=== PATIENT | male | born 1960 | race Caucasian/White ===

== ENCOUNTER 2018-08-14 14:35 | Emergency (ER) | payer OTHER ==
[~2018-08-14] VITALS: Ht 182.9 cm; Wt 81.6 kg
== END 2018-08-14 19:19 | disposition home or self-care (01) ==
LOC: ER 14:35
DX: M54.31 Sciatica, right side (principal)

== ENCOUNTER 2025-05-12 11:55 | Emergency (ER) | payer OTHER ==
[~2025-05-12] VITALS: Ht 182.9 cm; Wt 73.9 kg
[2025-05-12 12:32] VITALS: BP 160/80; O2SAT 100
[2025-05-12 16:17] LABS: BASO % 0.4 % (0.1-1.2); EOS # 0.10 (0.04-0.54); EOS % 1.0 % (0.7-7.0); LYMPH # 2.48 (1.18-3.74); LYMPH % 24.6 % (19.3-53.1); MEAN PLATELET VOLUME 9.10 fl (9.4-12.4); MONO # 0.85 (0.24-0.82); MONO % 8.4 % (4.7-12.5); NEUT # 6.61 (1.56-6.13); NEUT % 65.4 % (34.0-71.1); RED CELL DISTRIBUTION WIDTH 13.1 % (11.6-14.4)
[2025-05-12 16:26] LABS: URINE APPEARANCE Clear; URINE BILIRRUBIN Negative (NEGATIVE); URINE BLOOD Trace; URINE COLOR Yellow; URINE GLUCOSE Negative (NEGATIVE); URINE KETONE Trace (NEGATIVE); URINE LEUKOCYTE Negative; URINE NITRATE Negative; URINE PROTEIN 30 (NEGATIVE); URINE UROBILINOGEN 1.0 E.U./dl
[2025-05-12 16:30] LABS: URINE BACTERIA 73.1 uL (0.0-1933); URINE EPITHELIAL CELLS 7.5 uL (0.0-38.8); URINE RBC 21.4 uL (0.0-20.8); URINE WBC 5.3 uL (0.0-23.2)
[2025-05-12 16:31] LABS: URINE CAST 0.14 uL (0.0-1.40)
[2025-05-12 16:48] LABS: ALT/SGPT 20.0 U/L (12-78); AST/SGOT 20.0 U/L (15-37); BILIRUBIN TOTAL 0.5 mg/dL (0.3-1.2); BUN CREA RATIO 18.0 (7.0-25.0); CREATININE SERUM 1.19 mg/dL (0.70-1.30); GFR 61.35; GLOBULINA 3.7 G/DL (2.4-3.5); GLUCOSE FASTING 139.0 mg/dL (65-100); OSMOLALITY SERUM 285.0 MOSM/KG (275-295)
[2025-05-12] MEDS ORDERED: ORPHENADRINE CITRATE 30 MG/ML AMPUL IM STA (16:58)
[2025-05-12] MEDS ORDERED: DEXAMETHASONE SODIUM PHOSPHATE 4 MG/ML VIAL IM STA (16:58)
[2025-05-12] MEDS ORDERED: ORPHENADRINE CITRATE 30 MG/ML AMPUL ONE (17:06)
[2025-05-12] MEDS ORDERED: DEXAMETHASONE SODIUM PHOSPHATE 4 MG/ML VIAL ONE (17:06)
== END 2025-05-12 17:27 | disposition home or self-care (01) ==
LOC: ER 11:55
PROVIDERS: General Practice
DX: M79.10 Myalgia, unspecified site (principal)